=== PATIENT | female | born 1980 | race Caucasian/White ===

== ENCOUNTER 2022-05-16 20:15 | Emergency (ER) | payer BC, OTHER ==
[2022-05-16 20:29] VITALS: BP 162/98; PULSE 103; RESP 18; TEMP 98; BMI 28.8
[2022-05-16 20:57] LABS: HEMATOCRIT 38.7 % (32.4-45.2); HEMOGLOBIN 13.6 G/dL (10.7-15.3); MCH 29.1 pg (25.7-33.7); MCHC 35.2 g/dl (32.0-36.0); MEAN CELL VOLUME 82.6 fl (80-96); MEAN PLT VOLUME 7.5 fl (7.5-11.1); PLATELET COUNT 352.9 10^3/uL (134-434); RBC 4.69 10^6/uL (3.60-5.2); RDW 14.8 % (11.6-15.6); WHITE BLOOD COUNT 8.3 10^3/uL (4.0-10.8)
[2022-05-16 21:11] LABS: ALBUMIN 4.4 g/dl (3.4-5.0); BILIRUBIN,TOTAL 0.6 mg/dl (0.2-1); CALCIUM 9.4 mg/dl (8.5-10); CREATININE 0.9 mg/dl (0.55-1.3); TOT PROT 7.7 g/dl (6.4-8.2)
== END 2022-05-16 21:46 | disposition home or self-care (01) ==
LOC: FER 20:15
DX: R00.2 Palpitations (principal); R11.0 Nausea
CPT/HCPCS: 36415; 80053; 84703; 85027; 93005; 99284-25